=== PATIENT | male | born 1985 | race Caucasian/White ===

== ENCOUNTER 2018-11-09 12:21 | Emergency (ER) | payer SELFPAY ==
[2018-11-09] MEDS ORDERED: Naproxen 500 MG TAB ONE (14:54)
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
== END 2018-11-09 15:29 | disposition home or self-care (01) ==
LOC: ERS 12:21
DX: M54.2 Cervicalgia (principal); M54.5 Low back pain; F17.210 Nicotine dependence, cigarettes, uncomplicated; V89.2XXA Person injured in unspecified motor-vehicle accident, traffic, initial encounter
CPT/HCPCS: 72072; 72100; 72125

== ENCOUNTER 2021-07-29 20:29 | Emergency (ER) | payer OTHER, BC ==
[2021-07-29] MEDS ORDERED: HYDROcodone/Acetaminophen 10/325 mg Tablet ONE (20:49)
== END 2021-07-29 22:08 | disposition home or self-care (01) ==
LOC: ERS 20:29
DX: S82.844A Nondisplaced bimalleolar fracture of right lower leg, initial encounter for closed fracture (principal); F17.210 Nicotine dependence, cigarettes, uncomplicated; W01.0XXA Fall on same level from slipping, tripping and stumbling without subsequent striking against object, initial encounter
CPT/HCPCS: 27808

== ENCOUNTER 2021-08-01 19:39 | Emergency (ER) | payer OTHER, BC ==
[2021-08-01] MEDS ORDERED: traMADol HCl 50 MG TAB ONE (20:24)
== END 2021-08-01 21:45 | disposition home or self-care (01) ==
LOC: ERS 19:39
DX: S82.841A Displaced bimalleolar fracture of right lower leg, initial encounter for closed fracture (principal); F17.210 Nicotine dependence, cigarettes, uncomplicated; W00.0XXA Fall on same level due to ice and snow, initial encounter
CPT/HCPCS: 29515

== ENCOUNTER 2021-08-11 02:11 | Emergency (ER) | payer BC | END 2021-08-11 03:07 | disposition home or self-care (01) | LOC: ERS 02:11 | DX: S82.841D Displaced bimalleolar fracture of right lower leg, subsequent encounter for closed fracture with routine healing (principal); F17.210 Nicotine dependence, cigarettes, uncomplicated | CPT/HCPCS: 29515 ==